=== PATIENT | male | born 1950 | race Caucasian/White ===

== ENCOUNTER → 2017-09-14 | Outpatient (CLI) | payer MEDICARE | END | disposition home or self-care (01) | LOC: CFH 12:26 | PROVIDERS: ATTEND Internal Medicine Cardiovascular Disease | DX: I48.91 Unspecified atrial fibrillation (principal); I10 Essential (primary) hypertension | CPT/HCPCS: 93306 ==

== ENCOUNTER → 2018-09-13 | Outpatient (CLI) | payer MEDICARE ==
[~2018-09-13] MED LIST: ASPI-496 PO; OMNIPAQUE 350 MG/ML, 150 ML BOTTLE ONE
== END | disposition home or self-care (01) ==
LOC: CFH 11:56
PROVIDERS: ATTEND Internal Medicine Cardiovascular Disease
DX: J47.9 Bronchiectasis, uncomplicated (principal); J84.10 Pulmonary fibrosis, unspecified; I48.91 Unspecified atrial fibrillation
CPT/HCPCS: 71046; 75572; 82565; Q9967

== ENCOUNTER 2018-09-16 06:09 | Observation (INO) | payer MEDICARE ==
[2018-09-13 13:53] VITALS: BP 126/88
[2018-09-13 14:22] LABS: BASOPHILS # (AUTO) 0.02 x10^3/uL (0-0.1); BASOPHILS % (AUTO) 0 % (0-1); EOSINOPHILS # (AUTO) 0.27 x10^3/uL (0-0.4); EOSINOPHILS % (AUTO) 3 % (1-7); LYMPHOCYTES # (AUTO) 2.85 x10^3/uL (1-3.4); LYMPHOCYTES % (AUTO) 27 % (22-44); MD NO; MEAN CORPUSCULAR HGB CONC 33.9 g/dL (33.2-36.2); MEAN CORPUSCULAR VOLUME 91.7 fL (81-97); MEAN PLATELET VOLUME 7.7 fL (7.4-10.4); MONOCYTES # (AUTO) 0.52 x10^3/uL (0.2-0.8); MONOCYTES % (AUTO) 5 % (2-9); NEUTROPHILS # (AUTO) 6.85 x10^3/uL (1.8-6.8); NEUTROPHILS % (AUTO) 65 % (42-75); PLATELET COUNT 242 x10^3/uL (130-400); RED BLOOD COUNT 5.22 x10^6/uL (4.38-5.82); RED CELL DISTRIBUTION WIDTH 13.1 % (9.4-14.8)
[2018-09-13 14:29] LABS: ALANINE AMINOTRANSFERASE 31 U/L (12-78); ALBUMIN 4.2 g/dL (3.4-5.0); ANION GAP 6 mmol/L (5-15); CALCIUM 9.1 mg/dL (8.5-10.1); CHLORIDE 105 mmol/L (98-107)
[2018-09-13 14:31] LABS: ALKALINE PHOSPHATASE 66 U/L (45-117); TOTAL PROTEIN 7.2 g/dL (6.4-8.2)
[2018-09-13 14:54] LABS: INTERNATIONAL NORMALIZED RATIO 1.01 (0.93-1.1); PROTHROMBIN TIME 10.7 Seconds (9.6-11.5)
[~2018-09-16] VITALS: Ht 182.9 cm; Wt 110.0 kg
[~2018-09-16 06:09] MED LIST changes: -OMNIPAQUE 350 MG/ML, 150 ML BOTTLE ONE
[2018-09-16] MEDS ORDERED: SODIUM CHLORIDE 0.9% 1,000 ML IV SCH ×2 (06:23→06:30)
[2018-09-16] MEDS ORDERED: GLUC1CAP18 PO (06:33)
[2018-09-16] MEDS ORDERED: METO25TA35 PO (06:33)
[2018-09-16] MEDS ORDERED: SOTA80TA PO (06:34)
[2018-09-16] MEDS ORDERED: FENTANYL PF 250 MCG/5ML ONE (08:01)
[2018-09-16] MEDS ORDERED: MIDAZOLAM 1 MG/ML, 2ML ONE (08:01)
[2018-09-16] MEDS ORDERED: ROCURONIUM 10MG/ML,5ML ONE (08:05)
[2018-09-16] MEDS ORDERED: SUCCINYLCHOLINE 20 MG/ML, 10ML ONE (08:05)
[2018-09-16] MEDS ORDERED: EPHEDRINE 50 MG/ML, 1ML ONE (08:06)
[2018-09-16] MEDS ORDERED: DEXAMETHASONE 4 MG/ML, 1ML ONE ×2 (08:06)
[2018-09-16] MEDS ORDERED: ONDANSETRON 2MG/ML, 2ML ONE ×2 (08:06)
[2018-09-16] MEDS ORDERED: PROPOFOL 10 MG/ML, 20ML ONE (08:06)
[2018-09-16] MEDS ORDERED: HEPARIN 1,000 UNITS/ML, 30ML ONE (08:07)
[2018-09-16] MEDS ORDERED: PHENYLEPHRINE 10 MG/ML ONE (08:07)
[2018-09-16] MEDS ORDERED: LIDOCAINE 1%, 20ML ONE (08:14)
[2018-09-16] MEDS ORDERED: ISOPROTERENOL 0.2MG/ML, 1ML ONE ×2 (10:17)
[2018-09-16] MEDS ORDERED: FENTANYL PF 100 MCG/2ML ONE (10:42)
[2018-09-16] MEDS ORDERED: PROTAMINE SULFATE 10 MG/ML, 5ML ONE (11:06)
[2018-09-16] MEDS ORDERED: ACETAMINOPHEN 325 MG TABLET PO PRN ×2 (11:30→12:00)
[2018-09-16] MEDS ORDERED: ZOLPIDEM 5MG TABLET PO PRN (11:30)
[2018-09-16] MEDS ORDERED: PROMETHAZINE 12.5 MG SUPP PR PRN (12:00)
[2018-09-16] MEDS ORDERED: HALOPERIDOL 5 MG/ML IV PRN (12:00)
[2018-09-16] MEDS ORDERED: DIAZEPAM 5 MG/ML, 2ML IVPush PRN (12:00)
[2018-09-16] MEDS ORDERED: MEPERIDINE/PF 25MG/0.5ML IVPush PRN (12:00)
[2018-09-16] MEDS ORDERED: MIDAZOLAM 1 MG/ML, 2ML IV PRN (12:00)
[2018-09-16] MEDS ORDERED: ONDANSETRON 2MG/ML, 2ML IV PRN (12:00)
[2018-09-16] MEDS ORDERED: HYDROmorphone 2 MG/ML, 1ML IVPush PRN (12:00)
[2018-09-16] MEDS ORDERED: MORPHINE SULFATE 4 MG/ML, 1ML IVPush PRN (12:00)
[2018-09-16] MEDS ORDERED: ONDANSETRON ODT 8 MG PO PRN (12:00)
[2018-09-16] MEDS ORDERED: PROMETHAZINE 25 MG/ML, 1ML IV PRN (12:00)
[2018-09-16] MEDS ORDERED: ALBUTEROL SULFATE 2.5 MG/3 ML NPPB PRN (12:00)
[2018-09-16] MEDS ORDERED: OXYcodone 5 MG/5 ML ORAL.SOL UDC PO PRN (12:00)
[2018-09-16] MEDS ORDERED: FENTANYL PF 100 MCG/2ML IV PRN (12:00)
[2018-09-16] MEDS ORDERED: EPHEDRINE 50 MG/ML, 1ML IVPush PRN (12:00)
[2018-09-16] MEDS ORDERED: LABETALOL 5MG/ML, 20ML IV PRN (12:00)
[2018-09-16] MEDS ORDERED: hydrALAzine 20 MG/ML, 1ML IV PRN (12:00)
[2018-09-16] MEDS ORDERED: ACETAMINOPHEN 325 MG TABLET ONE (12:13)
[2018-09-16] MEDS ORDERED: SOTALOL 80MG TABLET PO ONE (14:00)
[2018-09-16] MEDS: APIXABAN 5 MG TABLET PO SCH ×2 (14:02→22:23)
[2018-09-16 17:56] VITALS: BP 122/82
[2018-09-16] MEDS: SOTALOL 120MG TABLET PO SCH (18:25)
[2018-09-16 20:47] VITALS: BP 108/79
[2018-09-17] VITALS (7 sets, daily range): BP systolic 100–118; BP diastolic 52–77
[2018-09-17] MEDS: SOTALOL 120MG TABLET PO SCH ×2 (06:09→18:20)
[2018-09-17] MEDS: APIXABAN 5 MG TABLET PO SCH ×2 (07:58→18:31)
[2018-09-17] MEDS ORDERED: SOTA120T14 PO (08:01)
[2018-09-17] MEDS ORDERED: ACET325T14 PO (08:01)
[2018-09-17] MEDS ORDERED: APIX5TAB PO (08:01)
== END 2018-09-17 19:51 | disposition home or self-care (01) ==
LOC: CACL 06:09 → ORIP 11:22 → 5SO 13:01
PROVIDERS: ADMIT Internal Medicine Cardiovascular Disease; ATTEND Internal Medicine Cardiovascular Disease
DX: I48.91 Unspecified atrial fibrillation (principal); I10 Essential (primary) hypertension; Z79.01 Long term (current) use of anticoagulants
CPT/HCPCS: 36415; 71046; 75572; 80053; 82565; 85025; 85347; 85610; 85730; 93005; 93308; 93312; 93321; 93325; 93613; 93656; 93657; 93662; C1730; C1732; C1759; C1766; C1893; C1894; G0378; J0330; J1100; J1644; J2250; J2370; J2405; J2704; J2720; J3010; J3490; Q9967; 93621